=== PATIENT | female | born 1990 | race African-American/Black ===

== ENCOUNTER → 2017-03-19 | Outpatient (CLI) | payer OTHER ==
--- NOTE | 2017-03-19 14:46 | KCIC ---
Examination: Ultrasound pelvis HISTORY: History of menorrhagia with irregular cycle. COMPARISON: None available Findings: The uterus measures 10.4 x 4.4 x 5.8 cm. The endometrium is 2.5 mm in thickness. The right ovary measures 6.2 x 4.2x 4.5 cm. In the right adnexa, there is a complex septated cystic structure measuring 4.8 x 3.8 x 3.1 cm. Left ovary measures 2.8 x 3.7 x 2.7 cm. Blood flow identified in the right and left ovaries. No evidence of free fluid identified in the pelvis. IMPRESSION: 1. Complex septated appearing cystic structure identified in the right adnexa measuring 4.8 cm could be a right ovarian cyst or adnexal cyst. Close interval follow-up examination or MRI pelvis can be considered for further evaluation. 2. Endometrial thickness within normal limits. Electronically signed by: Chandrakant Mueller MD (03/19/2017 2:43 PM) [place] [id number]
== END | disposition home or self-care (01) ==
LOC: KCIC US 13:49
PROVIDERS: ATTEND Family Medicine
DX: N92.0 Excessive and frequent menstruation with regular cycle (principal)
CPT/HCPCS: 76856